=== PATIENT | male | born 1965 | race Caucasian/White ===

== ENCOUNTER 2016-09-01 08:37 | Emergency (ER) | payer BC ==
[~2016-09-01] VITALS: Ht 190.5 cm; Wt 81.6 kg
[2016-09-01 08:47] VITALS: BP 136/72
--- NOTE | 2016-09-01 08:54 | NUR ---
PT WENT TO CT VIA BED PT AAO
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
--- NOTE | 2016-09-01 09:04 | NUR ---
Back from ct
--- NOTE | 2016-09-01 09:10 | NUR ---
Informed pt asking for pain medication
[2016-09-01] MEDS ORDERED: traMADol 50 MG TAB PO ONE (09:15)
--- NOTE | 2016-09-01 09:24 | NUR ---
PA AT BEDSIDE
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
[2016-09-01] MEDS ORDERED: MORPHINE SULFATE 2 MG/ML SYR IM ONE (09:35)
--- NOTE | 2016-09-01 10:10 | NUR ---
PT TALKING IN THE PHONE AWARE HE HAS D/C ORDER
--- NOTE | 2016-09-01 10:17 | NUR ---
PT STILL IN THE PHONE,EXPLAINED CALL NURSE WHEN READY FOR D/C
[2016-09-01 10:35] VITALS: BP 123/82
== END 2016-09-01 10:35 | disposition home or self-care (01) ==
LOC: MED 08:37
DX: S16.1XXA Strain of muscle, fascia and tendon at neck level, initial encounter (principal); R03.0 Elevated blood-pressure reading, without diagnosis of hypertension; E11.9 Type 2 diabetes mellitus without complications; E78.5 Hyperlipidemia, unspecified; Z88.1 Allergy status to other antibiotic agents; V43.52XA Car driver injured in collision with other type car in traffic accident, initial encounter; Y93.89 Activity, other specified; Y92.488 Other paved roadways as the place of occurrence of the external cause; Y99.8 Other external cause status
CPT/HCPCS: 72125; 82948; 96372; 99284; J2270